=== PATIENT | male | born 1930 | race Asian ===

== ENCOUNTER → 2016-07-07 | Outpatient (CLI) | payer OTHER, MEDICAID | LOC: BHCLAF 14:00 | PROVIDERS: ATTEND Internal Medicine Cardiovascular Disease | DX: R01.1 Cardiac murmur, unspecified (principal) | CPT/HCPCS: 93306-PO ==

== ENCOUNTER → 2017-07-17 | Outpatient (CLI) | payer OTHER, MEDICAID | LOC: BHCLAF 14:00 | PROVIDERS: ATTEND Internal Medicine Cardiovascular Disease | DX: I35.9 Nonrheumatic aortic valve disorder, unspecified (principal); I05.9 Rheumatic mitral valve disease, unspecified | CPT/HCPCS: 93306-PO ==

== ENCOUNTER → 2018-01-27 | Outpatient (CLI) | payer OTHER, MEDICAID | LOC: BHFA 16:00 | PROVIDERS: ATTEND Internal Medicine Cardiovascular Disease | DX: R00.2 Palpitations (principal) ==

== ENCOUNTER → 2018-06-30 | Outpatient (CLI) | payer OTHER, MEDICAID | DX: I34.0 Nonrheumatic mitral (valve) insufficiency (principal); I35.1 Nonrheumatic aortic (valve) insufficiency; I10 Essential (primary) hypertension ==